=== PATIENT | male | born 1955 | race African-American/Black ===

== ENCOUNTER 2024-03-22 06:41 | Emergency (ER) | payer OTHER ==
[2024-03-22 07:07] LABS: #Basophils 0.05 10x3/uL (0.0-0.2); %Basophils 0.9 % (0.0-1.0); %Eosinophils 1.6 % (0.0-10.0); %Lymphocytes 24.7 % (21.0-51.0); %Monocytes 11.1 % (0.0-10.0); %Neutrophils 61.5 % (42.0-75.0); Hematocrit 32.9 % (42.0-52.0); Hemoglobin 10.7 g/dL (14.0-18.0); Mean Corpuscular HGB CONC 32.5 g/dL (32.0-36.0); Mean Corpuscular Hemoglobin 26.4 pg (27.0-31.0); Mean Corpuscular Volume 81.2 fL (78.0-98.0); Platelet Count 227 10x3/uL (130-400); RBC Distribution Width 14.5 % (11.5-14.5); Red Blood Cell (RBC) Count 4.05 mill/uL (4.70-6.10)
[2024-03-22 07:18] LABS: ALT (SGPT) 26 U/L (8-55); AST (SGOT) 25 U/L (5-34); Albumin 3.6 g/dL (3.4-4.8); Alkaline Phosphatase 47 U/L (40-110); Anion Gap 12 mmol/L (10-20); BUN (Urea Nitrogen) 20 mg/dL (8.4-25.7); Bilirubin, Total 0.3 mg/dL (0.2-1.2); Calc. Creatinine Clearance 0 mL/min (70-130); Carbon Dioxide 20 mmol/L (23-31); Chloride 109 mmol/L (98-107); Estimated GFR 68; Globulin 3.9 g/dL (2.4-3.5); Glucose 102 mg/dL (83-110); Potassium 3.7 mmol/L (3.5-5.1); Protein, Total 7.5 g/dL (5.8-8.1); Sodium 137 mmol/L (136-145)
[2024-03-22 07:24] LABS: Troponin I Less than 0.010 ng/mL (< 0.028)
[2024-03-22] MEDS ORDERED: Aspirin Chewable 81 MG TAB ONE (07:52)
[2024-03-22] MEDS ORDERED: Iopamidol-370 76% 500 ML MDV (1 ML CHARGE) ONE (09:06)
[2024-03-22] MEDS ORDERED: Clopidogrel Bisulfate 300 MG TAB ONE (09:16)
[2024-03-22] MEDS ORDERED: Amlodipine 5 MG TAB ONE (10:07)
[2024-03-22] MEDS ORDERED: Carvedilol 6.25 MG TAB ONE (10:07)
[2024-03-22] MEDS ORDERED: Atorvastatin Calcium 40 MG TAB ONE (10:07)
[2024-03-22] MEDS ORDERED: Lisinopril 20 MG TAB ONE (10:08)
[2024-03-22] MEDS ORDERED: Sertraline 25 MG TAB ONE (10:12)
[2024-03-22] MEDS ORDERED: Hydrochlorothiazide 25 MG TAB PO SCH (10:15)
== END 2024-03-22 10:45 | disposition short-term general hospital (02) ==
LOC: ERS 06:41 → EDBD 06:41 → ERS 10:45
DX: H53.2 Diplopia (principal); H49.20 Sixth [abducent] nerve palsy, unspecified eye; I10 Essential (primary) hypertension; I25.10 Atherosclerotic heart disease of native coronary artery without angina pectoris; E78.5 Hyperlipidemia, unspecified; Z79.82 Long term (current) use of aspirin; Z79.899 Other long term (current) drug therapy
CPT/HCPCS: 0042T; 70450; 70496; 70498; 80053; 84484; 85025; 93005; 99285